=== PATIENT | male | born 2000 | race Caucasian/White ===

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

== ENCOUNTER 2019-08-02 23:13 | Emergency (ER) | payer OTHER ==
[~2019-08-02] VITALS: Ht 172.7 cm; Wt 79.4 kg
[~2019-08-02 23:13] MED LIST: ACET500C5 PO; DOXY100T21 PO; HYDR-4011 PO; IBUP-1542 PO; IBUP-1706 PO; IBUP800T48 PO
[2019-08-02 23:22] VITALS: BP 152/67; PULSE 116; RESP 16; Ht 172.7 cm; Wt 79.4 kg
[2019-08-03] MEDS ORDERED: KETOROLAC 60 MG INJ IM STA (02:09)
[2019-08-03] MEDS ORDERED: IBUPROFEN 800 MG TAB PO ONE (03:30)
== END 2019-08-03 03:34 | disposition home or self-care (01) ==
LOC: FTE 23:13
DX: M25.562 Pain in left knee (principal); F17.210 Nicotine dependence, cigarettes, uncomplicated
CPT/HCPCS: 73562; 96372; J1885; Z7502; Z7610